=== PATIENT | female | born 1970 | race Caucasian/White ===

== ENCOUNTER → 2017-01-05 | Outpatient (CLI) | payer OTHER | LOC: BMCIMAGING 07:42 | PROVIDERS: ATTEND Physician Assistant | DX: D25.2 Subserosal leiomyoma of uterus (principal); D25.0 Submucous leiomyoma of uterus | CPT/HCPCS: G0202 ==

== ENCOUNTER 2017-02-23 05:55 | Day surgery (SDC) | payer OTHER ==
[2017-02-23] MEDS ORDERED: LIDOCAINE 1% 2 ML INJ ONE (06:23)
[2017-02-23] MEDS ORDERED: SILVER NITRATE APPLICATOR 1 APPL TP ONE (07:04)
[2017-02-23] MEDS ORDERED: MIDAZOLAM 2 MG/2 ML VIAL ONE (07:17)
[2017-02-23] MEDS ORDERED: PROPOFOL/EMULSION 500 MG/50 ML BOTTLE IV ONE (07:23)
[2017-02-23] MEDS ORDERED: fentaNYL 100 MCG/2 ML INJ ONE ×2 (07:23→08:29)
[2017-02-23] MEDS ORDERED: VASOPRESSIN 20 UNIT/ML VIAL ONE (07:36)
[2017-02-23] MEDS ORDERED: PROPOFOL 200 MG/20 ML VIAL ONE (07:57)
[2017-02-23] MEDS ORDERED: HYDROmorphONE/DILAUDID 1 MG/ML SYR ONE (08:29)
--- NOTE | 2017-02-23 08:47 | GOP ---
[f rep st] OPERATIVE REPORT DATE OF OPERATION: 02/23/2017 SURGEON: Mahnaz Palmer MD ACCOUNTS ADMINISTRATOR: None. ANESTHESIA: IV general with propofol. ANESTHESIOLOGIST: Seferino Randall MD. PREOPERATIVE DIAGNOSIS: 1. Irregular uterine bleeding. 2. Submucosal fibroid. 3. Dysmenorrhea POSTOPERATIVE DIAGNOSIS: 1. Irregular uterine bleeding. 2. Submucosal fibroid. 3. Dysmenorrhea PROCEDURE PERFORMED: Removal of IUD, diagnostic hysteroscopy, hysteroscopic resection of submucosal fibroid. FINDINGS: Pedunculated 3 cm uterine fibroid attached at mid anterior uterine body. Otherwise, completely normal intrauterine cavity. Fibroid completely resected. ESTIMATED BLOOD LOSS: Minimal. INDICATIONS: The patient is a 46-year-old 0 with a history of irregular uterine bleeding and dysmenorrhea not improved with Mirena IUD. An ultrasound demonstrated a submucosal fibroid that had displaced her Mirena IUD into the lower uterine segment. It was recommended that we proceed with removal of the IUD and also resection of the fibroid. We reviewed the risks and benefits and alternatives, and she agreed to proceed. DESCRIPTION OF PROCEDURE: The patient was brought to the operating room and a time-out was performed with all parties present in agreement of the patient and procedure. Anesthetic was begun. She was prepped and draped in the normal sterile fashion in dorsal lithotomy with Randall stirrups. A speculum was placed in the vagina. The cervix was grasped at the anterior lip with a single-tooth tenaculum. A paracervical block of dilute vasopressin and lidocaine was injected, a total of 20 mL. The cervix was already found to be dilated to 6 mm. The 5 mm hysteroscope was then introduced with the findings as noted above. The TruClear 5 mm fibroid blade was then introduced and was used to completely resect the fibroid. Hemostasis was noted at this time. All instruments were removed. The patient tolerated the procedure well. Counts were correct x2. She is brought to the recovery room in good condition. COMPLICATIONS: None. FLUID DEFICIT: 130 mL normal saline. IV FLUIDS: 800 mL crystalloid. CONDITION: Stable to PACU. /[id number]/MODL MTDD
[2017-02-23] MEDS ORDERED: HYDROCODONE/APAP 5/325 TAB ONE (09:32)
== END 2017-02-23 10:11 | disposition home or self-care (01) ==
LOC: FSGY 05:55
PROVIDERS: ATTEND Obstetrics & Gynecology
DX: D25.0 Submucous leiomyoma of uterus (principal); T83.32XA Displacement of intrauterine contraceptive device, initial encounter; N94.6 Dysmenorrhea, unspecified; F32.9 Major depressive disorder, single episode, unspecified
CPT/HCPCS: 58561; 58562; C1782; J1170; J2250; J2704; J3010

== ENCOUNTER → 2018-03-01 | Outpatient (CLI) | payer OTHER | LOC: BMCIMAGING 13:40 | PROVIDERS: ATTEND Obstetrics & Gynecology | DX: D25.0 Submucous leiomyoma of uterus (principal); D25.2 Subserosal leiomyoma of uterus ==